=== PATIENT | female | born 1995 | race African-American/Black ===

== ENCOUNTER 2019-04-30 11:55 | Emergency (ER) | payer OTHER ==
[~2019-04-30] VITALS: Ht 157.5 cm; Wt 59.0 kg
[2019-04-30 12:19] LABS: URINE BILIRUBIN NEGATIVE (Negative); URINE BLOOD NEGATIVE (Negative); URINE CLARITY CLEAR; URINE COLOR YELLOW; URINE GLUCOSE-RANDOM* NEGATIVE (Negative); URINE KETONES 2+ (Negative); URINE LEUKOCYTES-REFLEX NEGATIVE (Negative); URINE NITRITE-REFLEX NEGATIVE (Negative); URINE PROTEIN (DIPSTICK) NEGATIVE (Negative); URINE UROBILINOGEN 0.2 E.U./dl (0.2-1.0)
[2019-04-30] MEDS ORDERED: FLAGYL 250 MG250 MG PO (13:57)
[2019-04-30] MEDS ORDERED: NORITATE60 GM TOP (14:02)
[2019-04-30 14:12] VITALS: BP 101/56
== END 2019-04-30 14:14 | disposition home or self-care (01) ==
LOC: ER 11:55
PROVIDERS: Emergency Medicine
DX: N76.0 Acute vaginitis (principal); Z88.2 Allergy status to sulfonamides

== ENCOUNTER 2019-12-08 16:52 | Emergency (ER) | payer OTHER ==
[~2019-12-08] VITALS: Ht 157.5 cm; Wt 74.8 kg
[~2019-12-08 16:52] MED LIST: FLAGYL 250 MG250 MG PO; NORITATE60 GM TOP
[2019-12-08 17:22] LABS: URINE BILIRUBIN NEGATIVE (Negative); URINE BLOOD NEGATIVE (Negative); URINE CLARITY CLEAR; URINE COLOR YELLOW; URINE GLUCOSE-RANDOM* NEGATIVE (Negative); URINE KETONES NEGATIVE (Negative); URINE LEUKOCYTES-REFLEX NEGATIVE (Negative); URINE NITRITE-REFLEX NEGATIVE (Negative); URINE PROTEIN (DIPSTICK) NEGATIVE (Negative); URINE UROBILINOGEN 0.2 E.U./dl (0.2-1.0)
[2019-12-08 18:38] VITALS: BP 118/41
== END 2019-12-08 18:38 | disposition home or self-care (01) ==
LOC: ER 16:52
PROVIDERS: Physician Assistant
DX: O26.892 Other specified pregnancy related conditions, second trimester (principal); N89.8 Other specified noninflammatory disorders of vagina; R10.30 Lower abdominal pain, unspecified; R10.2 Pelvic and perineal pain; Z3A.17 17 weeks gestation of pregnancy; Z88.2 Allergy status to sulfonamides

== ENCOUNTER 2020-01-24 20:14 | Emergency (ER) | payer OTHER ==
[~2020-01-24] VITALS: Ht 157.5 cm; Wt 83.0 kg
[2020-01-24] MEDS ORDERED: PRENATAL VIT PO (20:22)
[2020-01-24 22:24] LABS: ABSOLUTE NEUTROPHILS 6.9 thou/uL (1.4-8.2); BASOPHILS 0.5 % (0.0-2.0); EOSINOPHILS 4.4 % (0.0-3.0); HEMATOCRIT 36.5 % (37.0-47.0); HEMOGLOBIN 12.4 gm/dL (12.0-15.0); LYMPHOCYTES 22.5 % (24.0-44.0); MCH 30.5 pg (26.0-34.0); MCHC 34.1 g/dL (28.0-37.0); MCV 89.4 fL (80.0-100.0); MONOCYTES 10.3 % (1.0-8.0); PLATELET COUNT 219 thou/uL (150-400); POLYS 62.3 % (36.0-66.0); RBC 4.08 mil/uL (4.20-5.00); RDW 12.9 % (10.5-14.5); WBC 11.1 thou/uL (4.0-11.0)
[2020-01-24 22:37] LABS: APTT 25.3 Seconds (24.5-32.8); PROTIME 9.5 Seconds (9.3-11.4)
[2020-01-24 22:42] LABS: ANION GAP 7 mmol/L (7-16); BUN 6 mg/dL (7-18); CALCIUM 8.4 mg/dL (8.5-10.1); CHLORIDE 102 mmol/L (98-107); CO2 25 mmol/L (21-32); CREATININE 0.7 mg/dL (0.6-1.0); GLUCOSE 82 mg/dL (74-106); POTASSIUM 4.2 mmol/L (3.5-5.1); SODIUM 134 mmol/L (136-145)
[2020-01-24 22:53] LABS: ALBUMIN 2.5 g/dL (3.4-5.0); MAGNESIUM 1.9 mg/dL (1.8-2.4); SGOT 25 U/L (15-37); SGPT 23 U/L (30-65); TOTAL BILIRUBIN 0.3 mg/dL (0.2-1.0); TOTAL PROTEIN 6.5 g/dL (6.4-8.2); TROPONIN-I <0.06 ng/mL (<0.06); URIC ACID* 4.7 mg/dL (2.6-6.0)
[2020-01-24 23:06] LABS: URINE BILIRUBIN NEGATIVE (Negative); URINE BLOOD NEGATIVE (Negative); URINE CLARITY CLEAR; URINE COLOR YELLOW; URINE GLUCOSE-RANDOM* NEGATIVE (Negative); URINE KETONES NEGATIVE (Negative); URINE LEUKOCYTES-REFLEX NEGATIVE (Negative); URINE NITRITE-REFLEX NEGATIVE (Negative); URINE PROTEIN (DIPSTICK) NEGATIVE (Negative); URINE SPECIFIC GRAVITY 1.015 (1.005-1.035); URINE UROBILINOGEN 0.2 E.U./dl (0.2-1.0)
[2020-01-25 00:39] VITALS: BP 116/56
--- NOTE | 2020-01-26 07:47 | EKG ---
[facility] [place] [address] ELECTROCARDIOGRAM REPORT Name: WELLINGTON BROWN Room #: [id number] Admission: 01/24/20 Attend Phys: Discharge: 01/25/20 Date of : [birth year] Report #: [id number] THIS REPORT FOR: cc: NITA Gregorio family physician/PCP NITA - Darline family physician/PCP Jayden Jansen MD [facility] THIS REPORT FOR: //name// [facility] ED Test Date: 2020-01-24 Test Time: 22:53:09 Pat Name: WELLINGTON BROWN Department: Room: Gender: Cleater: : 1995 Requested By: Yadiel De Anda Order Number: [id number] MD: Jayden Jansen Measurements Intervals [place] Rate: 81 P: -14 HI: 144 QRS: 20 QRSD: 80 T: 2 QT: 365 QTc: 424 Interpretive Statements Sinus rhythm No significant abnormality No previous ECG available for comparison Electronically Signed On 01-26-2020 7:46:57 CDT by Jayden Jansen [email or web address] <ELECTRONICALLY SIGNED> By: Jayden Jansen MD, [facility] 01/26/20 0746 [id number] 225 Jayden Jansen MD, [facility] /EPI
== END 2020-01-25 00:40 | disposition home or self-care (01) ==
LOC: ER 20:14
PROVIDERS: Emergency Medicine
DX: O26.892 Other specified pregnancy related conditions, second trimester (principal); O12.02 Gestational edema, second trimester; R51 Headache; Z88.2 Allergy status to sulfonamides; Z3A.24 24 weeks gestation of pregnancy